=== PATIENT | female | born 1945 | race Caucasian/White ===

== ENCOUNTER 2017-01-04 06:49 | Day surgery (SDC) | payer OTHER ==
[2017-01-02 17:12] VITALS: BMI 36.7
[2017-01-04] MEDS ORDERED: MIDAZOLAM HCL 2 MG/2 ML SINGLE DOSE VIAL ONE (07:52)
[2017-01-04] MEDS ORDERED: PROPOFOL 20 ML ONE (07:52)
[2017-01-04] MEDS ORDERED: methylPREDNISolone ACET (DEPO) 40 MG/1 ML VIAL ONE (07:54)
[2017-01-04] MEDS ORDERED: THROMBIN (BOVINE) 5,000 UNIT VIAL TP ONE (07:54)
[2017-01-04] MEDS ORDERED: BUPIVACAINE HCL/PF 2.5 MG/ML - 30 ML VIAL IJ ONE ×2 (07:54→07:55)
[2017-01-04] MEDS ORDERED: BUPIVACAINE HCL/PF 0.5% (5MG/ML) 10 ML VIAL ONE (08:00)
--- NOTE | 2017-01-04 08:29 | HP ---
History & Physical Update - History History: No Change - Physical Physical: No Change - Assessment Assessment: No Change - Plan Plan: No Change
[2017-01-04] MEDS ORDERED: SUCCINYLCHOLINE CHLORIDE 200 MG/10 ML VIAL ONE (08:45)
[2017-01-04] MEDS ORDERED: LIDOCAINE HCL/PF 2% SDV 5ML VIAL ONE (08:46)
[2017-01-04] MEDS ORDERED: ONDANSETRON 4 MG/2 ML VIAL ONE (09:10)
[2017-01-04] MEDS ORDERED: DEXAMETHASONE SOD PHOSPHATE 4 MG/1 ML VIAL ONE (09:10)
[2017-01-04] MEDS ORDERED: ALBUTEROL SO4 18 GM HFA INHALER IH ONE (09:12)
[2017-01-04] MEDS ORDERED: ROCURONIUM BROMIDE 50 MG/5 ML VIAL ONE (09:14)
[2017-01-04] MEDS ORDERED: KETAMINE HCL 200 MG/20 ML VIAL ONE (09:19)
[2017-01-04] MEDS ORDERED: CLINDAMYCIN PHOSPHATE 600 MG/4 ML VIAL ONE (09:22)
[2017-01-04] MEDS ORDERED: HYDROmorphone HCL/PF 1 MG/ML VIAL (FOR PYXIS CHARGING ONLY) ONE ×2 (09:54→12:37)
[2017-01-04] MEDS ORDERED: PROMETHAZINE HCL 25 MG/1 ML VIAL IVPUSH PRN (12:50)
[2017-01-04] MEDS ORDERED: ONDANSETRON 4 MG/2 ML VIAL IVPUSH PRN (13:00)
[2017-01-04] MEDS ORDERED: ACETAMINOPHEN 325 MG TABLET (FP) PO SCH (13:00)
[2017-01-04] MEDS ORDERED: LACTATED RINGERS SOLUTION 1,000 ML IV SCH (13:00)
[2017-01-04] MEDS ORDERED: IPRATROPIUM BR 0.02% 0.5 MG/2.5 ML VIAL.NEB. NEB PRN ×2 (13:04→15:58)
[2017-01-04] MEDS ORDERED: PATIENT'S OWN MEDICATION (NON-FORMULARY) (Albuterol Sulfate [Proair Respiclick] 90 MCG) IH PRN (13:04)
[2017-01-04] MEDS ORDERED: ACETAMINOPHEN 1000 MG/100 ML VIAL (NON FORMULARY) IVPB ONE (13:14)
--- NOTE | 2017-01-04 13:26 | OP ---
Operative Note - Note: Operative Date: 01/04/17 Pre-Operative Diagnosis: spinal stenosis Operation: thoracic laminectomy T9-10 and T10-11, spianl cord stimulator Surgeon: Elan Jackson Contact Center Assistant: Reena Davison Anesthesiologist/CAMP MANAGER: Gavin Quinones Anesthesia: General Estimated Blood Loss (mls): 100 Fluid Volume Replaced (mls): 1,100 Operative Report Dictated: Yes
[2017-01-04] MEDS ORDERED: ALBUTEROL SO4 18 GM HFA INHALER IH PRN (13:27)
[2017-01-04] MEDS ORDERED: SODIUM CHLORIDE 1,000 ML IV SCH ×2 (13:30)
--- NOTE | 2017-01-04 13:30 | SURG ---
Surgery Credit Charge Authorizer Note Credit Charge Authorizer: Reena Davison PA-C Date of Service: 01/04/17 Diagnosis: spinal stenosis Procedure: thoracic laminectomy T9-10 and T10-11, spianl cord stimulator I was present for the entirety of the operative procedure. For further detail, please refer to operative report. Visit type - Case Type Case Type: Scheduled Admission - Emergency Emergency Visit: No - New patient This patient is new to me today: Yes Date on this admission: 01/04/17
[2017-01-04] MEDS ORDERED: GABAPENTIN 100 MG CAPSULE (FP) PO SCH (14:00)
[2017-01-04] MEDS ORDERED: HYDROmorphone HCL CARPU-JECT 1 MG/1 ML DISP.SYRIN ONE (14:04)
[2017-01-04] MEDS: HYDROmorphone HCL CARPU-JECT 1 MG/1 ML DISP.SYRIN IVPUSH PRN ×2 (14:08→14:18)
[2017-01-04] MEDS ORDERED: oxyCODONE HCL 5 MG TABLET ONE ×2 (14:20→15:39)
[2017-01-04] MEDS: oxyCODONE HCL 5 MG TABLET PO PRN ×3 (14:23→19:56)
--- NOTE | 2017-01-04 14:34 | OP ---
DATE OF OPERATION: 01/04/2017 PREOPERATIVE DIAGNOSIS: Chronic back pain. POSTOPERATIVE DIAGNOSIS: Chronic back pain. SURGERIES: 1. Placement of spinal cord stimulator. 2. Thoracic laminectomy. SURGEON: Leslee Jackson MD DOCUMENTATION CLERK: JEROME Smith ESTIMATED BLOOD LOSS: 100 mL. INTRAVENOUS FLUIDS: Per Anesthesia. ANESTHESIA: General. COMPLICATIONS: There were none. DISPOSITION: The patient was brought to the PACU in stable condition. INDICATION FOR SURGERY: The patient is a 71-year-old female who has been suffering from pain from her back over many years now. She has been through an exhaustive course of treatment for this. She had a spinal cord stimulator trial and she had received greater than 50% relief. Unfortunately, her pain continued to persist, and at that point after obtaining medical clearance, we discussed the placement of a spinal cord stimulator, and the patient consented to surgery. OPERATIVE NOTE: The patient was brought to the operating room by Anesthesia. After appropriate patient identification was performed, general anesthesia was given. She was placed prone onto the OR table with all areas of bony prominences well added at this time. The C-arm was brought in and the T10-11 level was marked off. Next, 10 mL of lidocaine with epinephrine were injected into her back at this time. Her back was prepped and draped in the usual sterile manner. At this point a timeout was completed. An incision was made from the top of T9 down to the bottom of T11. Dissection was carried down to the fascia and the fascia was split open at this time. Appropriate retractors were then placed in. A spinal needle was placed onto the T10 spinous process. X-rays taken to confirm this was correct. Needle was removed. The spinous process at T10 was removed. A full laminectomy was performed from T9 to T11. In placing the paddle, it was felt that she had too much stenosis and it would be too much compression to place the paddle. Decision was made at that point to place wires. Wires were placed. The wires were tunneled towards the battery. The pocket was made for the battery. Battery was connected to the wires. Testing was performed and it appeared okay. The fascia was closed with a number 1 Vicryl suture, subcutaneous tissues were closed with 2-0 Vicryl suture, and skin was closed with 3-0 Monocryl suture. Dermabond was applied. Steri-Strips were applied. A sterile dressing was applied. The patient was placed supine on the OR bed, extubated in the OR, and brought to the PACU in stable condition. LESLEE JACKSON M.D. /[id number]
[2017-01-04] MEDS: ACETAMINOPHEN 325 MG TABLET (FP) PO SCH (19:55)
[2017-01-04] MEDS: CLINDAMYCIN 600MG PREMIX IVPB 600 MG/50 ML BAG IVPB SCH (19:55)
[2017-01-04] MEDS: GABAPENTIN 100 MG CAPSULE (FP) PO SCH (21:05)
[2017-01-04] MEDS ORDERED: traZODone HCL 50 MG TABLET (FP) PO SCH (22:00)
[2017-01-04] MEDS ORDERED: PATIENT'S OWN MEDICATION (NON-FORMULARY) (Trazodone Hcl [Trazodone Hcl] 300 MG) PO SCH (22:00)
[2017-01-04] MEDS ORDERED: PATIENT'S OWN MEDICATION (NON-FORMULARY) (Pravastatin Sodium 20 MG) PO SCH (22:00)
[2017-01-05] MEDS: oxyCODONE HCL 5 MG TABLET PO PRN ×2 (00:43→04:42)
[2017-01-05] MEDS: CLINDAMYCIN 600MG PREMIX IVPB 600 MG/50 ML BAG IVPB SCH (00:44)
[2017-01-05] MEDS: ACETAMINOPHEN 325 MG TABLET (FP) PO SCH ×2 (01:06→08:00)
[2017-01-05 05:35] VITALS: BP 130/79; PULSE 88; TEMP 97.9
[2017-01-05] MEDS: GABAPENTIN 100 MG CAPSULE (FP) PO SCH (05:36)
[2017-01-05] MEDS ORDERED: PT OWN MED DRAWER 7, Y5N ONE (09:17)
[2017-01-05] MEDS ORDERED: ARIPiprazole 2 MG TABLET PO SCH (10:00)
[2017-01-05] MEDS ORDERED: FLUoxetine HCL 20 MG CAPSULE (FP) PO SCH (10:00)
[2017-01-05] MEDS ORDERED: LISINOPRIL 20 MG TABLET (FP) PO SCH (10:00)
[2017-01-05] MEDS ORDERED: BUPROPION HCL 300 MG, BUPROPION HCL 150 MG PO SCH (10:00)
[2017-01-05] MEDS ORDERED: PATIENT'S OWN MEDICATION (NON-FORMULARY) (Umeclidinium Brm/Vilanterol Tr [Anoro Ellipta 62 IH SCH (10:00)
[2017-01-05] MEDS ORDERED: BUPROPION HCL 450 MG PO SCH (10:00)
--- NOTE | 2017-01-05 12:52 | PN ---
Progress Note (short form) - Note Progress Note: Retroactive note: patient seen at 7:30 am on 01/05/17 The patient was admitted to the Med-Surg Unit after an elective operative intervention for her spinal stenosis. Now POD #1 thoracic laminectomy T9-10 and T10-11, spinal cord stimulator implant patient is seen and examines at bedside. Pt c/o Left leg pain which is unchanged from pre op and states pain is controlled. She denies any fever, chill, n/v/d Cp or SOB. Patient has been OOB and ambulating with assistance, She is also voiding spontaneously. PE: A&Ox3, NAD VSS thoracic spine and left lumbar incisions, with steris in palce and c/d/i with no evidence of discharge or tracking erythema. some area of irritation from tegaderm over inferior border of dressing area over lumbar paraveterbral incision,. no signs of infection. Pt with 5/5 UE and 5/5 LE strength B/L Le compartments soft supple and non-tender to palpation NVID with +2 pedal pulses Incisions re-dressed with 4x4 and paper tape Assesment: s/p laminectomy with spinal cord stimulator implant doing well Plan: Tiffany-operative IV ABX have been completed and DVT prophylaxis was achieved with SCDs and early ambulation. The patient ambulated with Physical Therapy and no services were recommended upon discharge. Narcotic scripts were checked with [facility] prior to escibe. The discharge instructions and an oral pain management plan were reviewed with the patient. Patient states that she has tolerated oxycontin and percocet in the past. We will give her 5 days worth of medication for management of her acute pain and she will follow up with Dr. Paz and Dr. Winston regarding further management and restarting her Suboxone. All questions answered. Above plan discussed with Dr. Jackson and agreed. <Daniella Patrick - Last Filed: 01/05/17 12:53> Physical Examination Vital Signs: Vital Signs Temperature 97.9 F 01/05/17 05:34 Pulse Rate 88 01/05/17 05:34 Respiratory Rate 20 01/05/17 05:34 Blood Pressure 130/79 01/05/17 05:34 O2 Sat by Pulse Oximetry (%) 95 01/05/17 05:34 Patient seen and examined Agree with above Pain controlled with medicine Patient to F/U with Dr Paz upon discharge <Elan Jackson - Last Filed: 01/08/17 09:33>
== END 2017-01-05 12:23 | disposition home or self-care (01) ==
LOC: FASU 06:49 → FM/S 17:00 → FASU 01-05 12:23
PROVIDERS: ATTEND Orthopaedic Surgery Orthopaedic Surgery of the Spine
PROC: 00HU0MZ Insertion of Neurostimulator Lead into Spinal Canal, Open Approach (ICD-10-PCS; 2017-01-04)
PROC: 0JH70BZ Insertion of Single Array Stimulator Generator into Back Subcutaneous Tissue and Fascia, Open Approach (ICD-10-PCS; 2017-01-04)
PROC: 01N80ZZ Release Thoracic Nerve, Open Approach (ICD-10-PCS; principal; 2017-01-04 09:39)
DX: M54.9 Dorsalgia, unspecified (principal); G89.29 Other chronic pain
CPT/HCPCS: 72070-TC; 97116-GP; 97162-GP

== ENCOUNTER 2022-02-27 06:31 | Day surgery (SDC) | payer OTHER, BC ==
[2022-02-21 14:57] VITALS: BMI 37.8
[2022-02-27] MEDS ORDERED: OFLOXACIN 0.3% OPHTHALMIC SOLUTION 5 ML BOTTLE ONE (07:08)
[2022-02-27] MEDS ORDERED: KETOROLAC TROMETHAMINE 0.5% EYE DROP 1 DROP DROPS ONE (07:08)
[2022-02-27] MEDS ORDERED: TROPICAMIDE 1% OPHTH SOLN 15 ML BOTTLE ONE (07:08)
[2022-02-27] MEDS ORDERED: PHENYLEPHRINE 2.5% OPHTH SOLN 15 ML BOTTLE ONE (07:08)
[2022-02-27] MEDS ORDERED: CYCLOPENTOLATE HCL 1% OPHTH SOLN 2 ML BOTTLE ONE (07:09)
[2022-02-27] MEDS ORDERED: BACITRACIN/POLYMYXIN OPH OINT 3.5 GM TUBE ONE (07:17)
[2022-02-27] MEDS ORDERED: EPINEPHrine/PF 1 MG/1 ML (1:1,000) AMPULE ONE (07:17)
[2022-02-27] MEDS ORDERED: TETRACAINE 0.5% OPHTH SOLN 2 ML BOTTLE ONE (07:18)
[2022-02-27] MEDS ORDERED: BETAXOLOL HCL 0.25% OPHTHALMIC 10 ML DROPSBTL ONE (07:18)
[2022-02-27] MEDS ORDERED: EPI-SHUGARCAINE (EPINEPHRINE 0.025% & LIDOCAINE-PF 0.75%) 4ML ONE (07:18)
[2022-02-27] MEDS ORDERED: POVIDONE-IODINE 5% OPHTHALMIC PREP 30 ML SOLUTION ONE (07:18)
[2022-02-27] MEDS ORDERED: ACETYLCHOLINE 1:100 INTRA-OCUL 20 MG/2 ML KIT ONE (07:19)
[2022-02-27] MEDS ORDERED: NEO/POLYMYX B SULF/DEXAMETH OPHTHALMIC 5ML BOTTLE ONE (07:19)
[2022-02-27] MEDS: KETOROLAC TROMETHAMINE 0.5% EYE DROP 1 DROP DROPS OD SCH ×3 (07:20→07:30)
[2022-02-27] MEDS: TROPICAMIDE 1% OPHTH SOLN 15 ML BOTTLE OD SCH ×3 (07:20→07:30)
[2022-02-27] MEDS: PHENYLEPHRINE 2.5% OPHTH SOLN 15 ML BOTTLE OD SCH ×3 (07:20→07:30)
[2022-02-27] MEDS: CYCLOPENTOLATE HCL 1% OPHTH SOLN 2 ML BOTTLE OD SCH ×3 (07:20→07:30)
[2022-02-27] MEDS: OFLOXACIN 0.3% OPHTHALMIC SOLUTION 5 ML BOTTLE OD SCH ×3 (07:20→07:30)
[2022-02-27] MEDS ORDERED: MIDAZOLAM HCL 2 MG/2 ML SINGLE DOSE VIAL ONE (07:50)
[2022-02-27] MEDS ORDERED: ONDANSETRON 4 MG/2 ML VIAL ONE (08:21)
[2022-02-27] MEDS ORDERED: ACETAMINOPHEN 325 MG TABLET (FP) PO PRN (08:52)
[2022-02-27 09:12] VITALS: PULSE 63; RESP 16; TEMP 97.8
[2022-02-27] MEDS ORDERED: BSS (NA/CA/MG/K) BALANCED SALT SOLUTION OPHTH SOLN 15 ML BOTTLE ONE (09:12)
[2022-02-27 09:53] VITALS: BP 132/67
== END 2022-02-27 09:45 | disposition home or self-care (01) ==
LOC: FASU 06:31
PROVIDERS: ATTEND Ophthalmology
PROC: 08RJ3JZ Replacement of Right Lens with Synthetic Substitute, Percutaneous Approach (ICD-10-PCS; principal; 2022-02-27 08:25)
DX: H25.11 Age-related nuclear cataract, right eye (principal)
CPT/HCPCS: 66984; V2632